=== PATIENT | male | born 1930 | race Caucasian/White ===

== ENCOUNTER 2017-02-11 12:28 | Inpatient (IN) | payer MEDICARE, BC ==
[~2017-02-11] VITALS: Ht 160 cm; Wt 83.0 kg
[~2017-02-11 12:28] MED LIST: ALEVE220 M1 PO; ASA CHILDREN'S81 MG PO; CALCIUM500 MG PO; DULCOLAX-DPS10 MG PR; LIPITOR DPS40 MG PO; MAALOX DPS30 ML PO; METAMUCIL660 GM PO; MILK OF MAGNESI10 ML PO; MOBIC DPS7.5 MG PO; NEURONTIN DPS100 MG PO; OMEGA-3 DPS1000 MG PO; PERCOCET 5 DPS1 TAB PO; PRILOSEC DPS20 MG PO; SENOKOT S1 TAB PO; SURFAK DPS240 MG PO; TENORMIN-DPS25 MG PO; TYLENOL DPS325 MG PO; VALIUM-DPS5 MG PO; ZYLOPRIM-DPS100 MG PO
--- NOTE | 2017-02-16 08:37 | OR ---
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 PROCEDURE: 1. Cervical 1 and cervical 2 laminectomies decompressing down to the cervical 2-3 level with wide decompression of the thecal sac. 2. Stereotactic placement of bilateral cervical 1 lateral mass screws. 3. Placement of stereotactic bilateral C2 pedicle screws. 4. Placement of bilateral lateral mass screws, cervical 4 and cervical 5. 5. [place] of autograft through same incision with morcellation and admixture with allograft with implantation into the posterolateral gutters for fusion substrate. 6. Posterior cervical instrumentation, cervical 1, 2, 4, and five, utilizing Cell[employer] instrumentation. 7. Intraoperative monitoring with no sign of change in the monitoring at the end of the case. DESCRIPTION OF PROCEDURE: After gaining informed consent, the patient was taken to operative theater, placed under general endotracheal anesthesia in a supine position and turned prone on a West table very cautiously after very cautious intubation. He was clamped to the bed and all pressure points were purposely padded prior to performing the procedure. There was no sign of change from his baseline. Once this was completed, attention was turned to the timeout and initial fluoroscopy. The incision was fashioned in the midline of the cervical spine from the bottom of the occiput down over top of cervical 5. This was then taken down in the midline avascular plane through the nuchal fascia to the spinous processes. The anatomy was severely deranged. Cervical 3 had barely any visible lateral mass and decision was made that I would be likely unable to place a cervical 3 lateral mass screw. Cervical 4 and 5 were severely arthritic and auto-fused. Cervical 2 was in a usual anatomical location. Cervical 1 was retrolisthetic in appearance and without much room between the occiput and C2 and severely overgrown with arthritic tissue. This case was significantly more difficult than usual secondary to the severely deranged anatomy, the significant scarring around the thecal sac at the occipital cervical junction as well as the arthritic changes making it very difficult to delineate anatomy at times. Initially, the decompression was performed first. Once C1 was widely subperiosteally dissected, I drilled this off very cautiously due to the severe compression without incurring any excursion into ADMIT: 02/11/2017 RM/LOC: W.01 [facility] MR#: [id number] [address] [place] [phone] TEENA MICHAEL [address] [place] [address] Operative/Delivery Room Report SEX: M AGE: 87 : 1930 the spinal canal. Once this was able to be loosened and nearly completely drilled off, the remaining pieces of scar tissue were removed. Bleeding was noted from the decompressed Deysi plexus, which was bipolar- electrocoagulated. Once this was completed, attention was turned to placing the screws. I was unable to fully delineate the lateral mass for cervical 3, and as such, cervical 3 screws were decided not to be placed. Utilizing standard landmarks and the severely arthritic cervical 4 and 5 lateral masses, the lateral masses were drilled 1 mm inferomedial to the geographic center, hand-drilled to 14 mm, then vancomycin powder coated screws were implanted bilaterally. At this point, the stereotactic reference frame was then screwed onto the spinous process of C2 and intraoperative CT scanning for stereotactic was obtained. Utilizing CT scanning and spot fluoroscopy as necessary, the lateral masses of C1 were delineated. This was then drilled down with a high-speed drill, and then the hand drill placing 22 mm vancomycin powder coated screws. Once this was done, alignment of the C2 pedicles was also delineated. These were partially drilled with a high speed drill and then hand-drilled the rest of the way placing 24 mm screws after vancomycin powder coating them. At this point, CT scan was obtained, resulting in suboptimal imaging but no apparent sign of complication as a result of screw placement, and attention was turned to laminectomy at cervical 2. Deysi plexus was severely compressed, and after utilizing the high speed drill and elevating the C2 lamina, significant bleeding was encountered. In the process of drilling this off, there was a scarred area of overfold on the dura that had incidental durotomy noted. This was covered. Bleeding was made hemostatic and subsequently a piece of paraspinous musculature was taken off and oversewn over top of the small dural rent. There was no further sign of CSF leak. At this point, attention was turned to finishing harvesting any further autograft that was left with some of the spinous processes and the rest of the bone was morcellated and admixed with allograft. The posterior instrumentation was brought into the field and appropriately sized and attention was then turned to placing the set screws caps and cross ADMIT: 02/11/2017 RM/LOC: W.01 [facility] MR#: [id number] [address] [place] [phone] TEENA MICHAEL [address] [place] [address] Operative/Delivery Room Report SEX: M AGE: 87 : 1930 connectors. Once this was completed, pristine hemostasis was obtained. DuraGen and DuraSeal were placed. There was no sign of any leakage, and bleeding was controlled. A ROGELIO drain was day-lighted out, and then the nuchal fascia was closed with running locking 0 Ethibond. Simple, inverted, and interrupted 2-0 Vicryl was used in the hypodermic tissue with terrence on the skin. ESTIMATED BLOOD LOSS: 500 mL. SPECIMEN: Posterior elements. DISPOSITION: Extubated and taken to postanesthesia care unit. Renato Stokes MD/ bo JOB #: [id number] CC: Renato Stokes, Attending Physician Other Physician, Family Physician
--- NOTE | 2017-02-18 08:17 | CO ---
ADMIT: 02/11/2017 RM/LOC: 524 [facility] MR#: [id number] 2620 [facility] [address] [place] [phone] TEENA MICHAEL [address] [place] [address] Consultation SEX: M AGE: 87 : 1930 DATE OF CONSULTATION: 02/17/2017 ATTENDING PHYSICIAN: Renato Stokes CONSULTING PHYSICIAN: Alvaro Butts MD HISTORY OF PRESENT ILLNESS: Mr. Michael is a pleasant, unfortunate, 87-year-old white male with history of hypertension, hypercholesterolemia, gastroesophageal reflux, and osteoarthritis. He was admitted to the hospital at [place] on 02/11/2017, with severe cervical spinal stenosis and myelopathy with severe cord compression. He underwent surgical procedure including C1-C2 laminectomy, stereotactic placement of bilateral cervical lateral mass screws, stereotactic C2 pedicle screws, C4-C5 bilateral mass screws, autograft with allograft implantation at the posterior gutters, and stabilization of the cervical spine. Initially, did well the first couple of days following surgery, but then started having more pain. He does have a [place] J collar in place, but this has been limiting his ability to take deep breaths and cough. Subsequently, started having fevers over the last couple of days, and chest x-rays revealing atelectasis and infiltrates. Because of persistent low-grade fevers and concern for possible pneumonia, he was seen in consultation. At the time he was seen, he was sitting up in a chair. He had his cervical collar in place, and was having some degree of pain. His son was present, and gave most of the information obtained. He has been able to cough a little bit over the last couple of days. Because he was having so much pain initially, he was on narcotic pain medications, and this caused some problems with mentation and he was "out of it." He has subsequently been started on DuoNebs and EzPAP with possibly some improvement. However, he continues to require low-flow supplemental oxygen, continues to have low-grade fevers. The son mentioned that the last couple of days, he has been able to cough up some purulent secretions. PAST MEDICAL HISTORY: As mentioned above. Additionally, he has had previous right shoulder replacement surgery. He has no history of underlying lung disease. ALLERGIES: HE IS ALLERGIC TO NIACIN, WHICH CAUSES SKIN RASH. MEDICATIONS: Listed home medications reviewed in electronic medical records, includes: 1. Atenolol 25 mg daily. 2. Allopurinol 300 mg daily. 3. Meloxicam 7.5 mg daily. 4. Aspirin 81 mg daily. 5. Atorvastatin 40 mg daily. ADMIT: 02/11/2017 RM/LOC: 524 [facility] MR#: [id number] [address] [phone] TEENA MICHAEL [address] [place] [address] Consultation SEX: M AGE: 87 : 1930 6. Omeprazole 20 mg daily. 7. He is also on fish oil 1 g daily. 8. Calcium carbonate p.r.n. FAMILY AND SOCIAL HISTORY: He is retired. He is a nonsmoker. He is a retired valle. He is . He had been living independently prior to hospitalization. REVIEW OF SYSTEMS: As above. A 12-point review of systems performed, significant positives and negatives discussed above. As noted, he has had some urinary retention, has a catheter in place. Prior to his entry into the hospital, he was having back pain, neck pain, both upper and lower extremity weakness and numbness. PHYSICAL EXAMINATION: VITAL SIGNS: He was currently running a low-grade fever of 100.9. T-max over the last 24 hours was 102 degrees Fahrenheit. Blood pressure 129/60. Pulse 70. Oxygen saturation was 97%, currently on 3 L of supplemental oxygen. GENERAL: This is a well-developed, well-nourished, elderly male, currently in no acute respiratory distress. He does awaken when stimulated, and is otherwise appropriate. When not engaged, at times he drifts off to sleep. He is complaining of significant neck pain. HEENT: Shows head to be normocephalic, atraumatic. Pupils are equal and reactive. Nares patent. Posterior hypopharynx is clear. Oral dentition is marginal with number of decaying teeth. NECK: Has a [place] J collar in place. CHEST: Revealed decreased diaphragm excursion because of obesity. Breath sounds were diminished in the lung bases. He does have some central rhonchi, which are more prominent on the right than on the left. HEART: Regular, no murmur. ABDOMEN: Obese, soft, nondistended, nontender. He has hypoactive but positive bowel sounds. No guarding or rigidity is noted. EXTREMITIES: Showed no clubbing, cyanosis, or edema. Several areas of his lower extremities show some bruises and lacerations where he had been falling prior to entry into the hospital. He does have some weakness, but no acute focal neurologic deficits noted. ASSESSMENT AND PLAN: He was admitted with significant severe compression of ADMIT: 02/11/2017 RM/LOC: 524 [facility] MR#: [id number] [address] [place] [phone] TEENA MICHAEL [address] [place], [place] [id number] Consultation SEX: M AGE: 87 : 1930 the spinal cord, C1-C2, has undergone extensive surgery as mentioned above. He has significant postop hypoxemia, which is secondary to combination of probable pneumonia and atelectasis. I am going to increase the frequency of the nebulizer treatments to every 4 hours. We will continue with the EzPAP for lung expansion. Additionally, I am going to add Acapella/flutter valve to help loosen and liberate secretions. Obviously pain control is needed, but ambulation if possible would certainly be beneficial as well to help expand the lungs. I am going to add Zosyn for increased coverage, we will start that intravenously. We will continue to follow here in the hospital with you and further recommendations to follow the assessment of his response to treatments and therapies. Alvaro Butts MD/ bo JOB #: [id number] CC: Renato Stokes, Attending Physician Other Physician, Family Physician
[2017-02-22] MEDS ORDERED: LOVENOX DP40 MG/0.4 SQ (09:55)
[2017-02-22] MEDS ORDERED: OCEAN NASAL MIS45 ML NS (09:56)
[2017-02-22] MEDS ORDERED: ULTRAM DPS50 MG PO (09:56)
[2017-02-22] MEDS ORDERED: TEARS NATURAL D15 ML OU (09:56)
[2017-02-22] MEDS ORDERED: OMEGA-3 DPS1000 MG PO (09:57)
[2017-02-22] MEDS ORDERED: ZYLOPRIM-DPS300 MG PO (09:57)
[2017-02-22] MEDS ORDERED: PROTONIX40 MG PO (09:57)
[2017-02-22] MEDS ORDERED: ASA CHILDREN'S81 MG PO (09:57)
[2017-02-22] MEDS ORDERED: LIPITOR40 MG PO (09:57)
[2017-02-22] MEDS ORDERED: TENORMIN-DPS25 MG PO (09:57)
[2017-02-22] MEDS ORDERED: OYSTER SHELL C500 MG PO (09:58)
[2017-02-22] MEDS ORDERED: DUONEB DPS3 ML IH (09:59)
[2017-02-22] MEDS ORDERED: AUGMENTIN 250250 MG PO (09:59)
[2017-03-25] MEDS ORDERED: ZYLOPRIM-DPS300 MG PO (13:55)
[2017-03-25] MEDS ORDERED: ASPIRIN EC81 MG PO (13:55)
[2017-03-25] MEDS ORDERED: VITAMIN D1000 UNI1 PO (14:00)
[2017-03-25] MEDS ORDERED: NEURONTIN DPS300 MG PO (14:01)
[2017-03-25] MEDS ORDERED: FEOSOL-DPS325 MG PO (14:01)
[2017-03-25] MEDS ORDERED: ULTRAM DPS50 MG PO (14:01)
[2017-03-25] MEDS ORDERED: ASCORBIC ACID500 MG PO (14:02)
--- NOTE | 2017-03-30 12:05 | DS ---
ADMIT: 02/11/2017 RM/LOC: 524 [facility] MR#: [id number] ACC#: [id number] 2620 [facility] [address] [place], [place] [address] TEENA MICHAEL [address] [place] [address] Discharge Summary SEX: M AGE: 87 : 1930 ADMISSION DATE: 02/11/2017 DISCHARGE DATE: 02/20/2017 SERVICE: Neurosurgery. REASON FOR ADMISSION: 1. Cervical stenosis. 2. Upper extremity weakness. PROCEDURE: Cervical 1-5 laminectomy and fusion. CONSULTATION: Alvaro Butts MD, with Pulmonology. HOSPITAL COURSE: Mr. Michael tolerated his procedure well. Postoperatively, he was taken to the Med/Surg floor for monitoring and care. Postop day #1, he was awake and alert. He was afebrile, and his vital signs were stable. He was moving all extremities x4. He was complaining of quite a bit of posterior neck pain. His incision and dressing had old drainage on it. It was serosanguineous in nature. His ROGELIO drain was patent with serosanguineous drainage. He did work with Physical Therapy and Occupational Therapy and tolerated this well. He was having some urinary retention. Postop day #2, he was awake and alert. He was afebrile, his vital signs were stable. He was moving all extremities x4 with 5/5 strength. He was complaining of bilateral arm weakness. He was complaining of being dizzy, which his son did report he had prior to surgery. He was reporting his ears were feeling a little full. His incision was clean, dry, and intact. His ROGELIO drain continued to be patent with serosanguineous drainage. He was started on some cetirizine for his dizziness. He continued to work with Physical Therapy and Occupational Therapy and tolerated this well. Postop day #3, he was awake and alert. He was a little more sleepy today. He was afebrile, his vital signs were stable. He was moving all extremities x4. He was complaining of bilateral hand weakness. His incision was clean, dry, and intact. His ROGELIO drain was patent with serosanguineous drainage that had decreased; therefore, it was discontinued without difficulty. He did continue to work with therapies. On postop day #4, he would awaken but was drowsy. He was febrile. His vital signs were stable. He was moving all extremities x4 with 5/5 strength. His incision was clean, dry, and intact. His posterior neck pain was improved with the FITNESS CLUB MANAGER. His pain medications were changed. He worked with Physical Therapy and Occupational Therapy and was having quite a bit of pain. That afternoon, his fever spiked again. Blood cultures were obtained. Urine was obtained. He was started on some DuoNebs with the EZ Pap. He was encouraged to cough and deep breathe. Postop day #5, he would awaken, he was drowsy. He was febrile, his vital signs were stable. He was moving all extremities x4. His incision was clean, dry, and intact. His chest x-ray revealed atelectasis versus consolidation. He was started on some Levaquin. His UA revealed some trace leukocyte esterase. He was having difficulty with the way his cervical collar was fitting, and Computer Lab Assistant was consulted. He continued to work with Physical Therapy and Occupational Therapy. He continued with urinary retention, and a Nieves catheter was placed per dependent drainage. He had an ADMIT: 02/11/2017 RM/LOC: 524 [facility] MR#: [id number] [address] [place] [address] TEENA MICHAEL [address] [place], [place] [id number] Discharge Summary SEX: M AGE: 87 : 1930 increased need in his oxygen. Postop day #6, his chest x-ray revealed bilateral lung base opacities. He was awake, he was lethargic on the medications. He was moving all extremities x4. His incision was clean, dry, and intact. He had some abdominal distention. He was complaining of being constipated. He was given some medications for his constipation. His pain medication was changed from Percocet down to tramadol. He was started on some prophylactic DVT Lovenox. Pulmonology was consulted for his pneumonia. He continued to work with Physical Therapy and Occupational Therapy as tolerated. He was started on some Zosyn. Family was requesting a fleets enema and he was given one. Postop day #7, his vital signs were stable. He was pretty sedated. He was moving all extremities x4. His wound was clean, dry, and intact. His Valium, fentanyl, and morphine were discontinued. Postop day #8, his vital signs were stable. He was awake. He was alert. He was moving all extremities x4. He had global weakness but was at baseline. Social Work was working with the family for post discharge placement. He continued to work with Physical Therapy and Occupational Therapy. Postop day #9, he was awake and alert. He was moving all extremities x4 but was globally weak. He was at his baseline. His incision was clean, dry, and intact, and no hematoma or cerebrospinal fluid accumulation was noted. His Zosyn was discontinued, and he was started on Augmentin. He was evaluated by the [facility] and determined to be an appropriate candidate for their swing bed rehabilitation program. On the day of discharge, he was deemed medically fit for transfer. DISCHARGE CONDITION: Good. DISCHARGE MEDICATIONS: 1. Lovenox 40 mg subcu daily. 2. Ultram 50 mg 1-2 tablets p.o. q.4 hours p.r.n. 3. [place] nasal spray 2 sprays in each naris q.2 hours p.r.n. 4. Natural Tears 1 drop to each eye q.4 hours p.r.n. 5. Atenolol 25 mg p.o. daily. 6. Allopurinol 300 mg daily. 7. Aspirin 81 mg daily. 8. Atorvastatin 40 mg q. p.m. 9. Omeprazole 20 mg daily. 10.Fish oil 1000 mg 2 capsules daily. 11.Calcium 500 mg 2 tablets daily. 12.Augmentin 500 mg p.o. b.i.d. x5 days. 13.DuoNebs q.i.d. DISCHARGE INSTRUCTIONS: (Per Dr. Stokes): ADMIT: 02/11/2017 RM/LOC: 524 [facility] MR#: [id number] [address] [address] TEENA MICHAEL [address] [place] [address] Discharge Summary SEX: M AGE: 87 : 1930 He may shower, he should not take any tub baths, he should pat his incision dry. He should not lift anything greater than 15 pounds. He can have a regular diet. He should continue with Physical Therapy and Occupational Therapy. He will call with any questions or concerns including neurological worsening, signs or symptoms of infection, or any other issues. FOLLOWUP: He will follow up in the [facility] with Dr. Stokes. DISPOSITION: He was discharged to the [facility] Bed. Total [id number] time for the discharge planning and care coordination was 30 minutes. Vicenta Washington APRN / Renato Stokes MD / lori JOB #: [id number] CC: Renato Stokes MD, Attending Physician Other Physician, Family Physician
== END 2017-02-20 13:50 | DRG 471 ==
LOC: 5MS 14:46 → WOR 14:46 → 5MS 02-12 00:33
PROVIDERS: ADMIT Neurological Surgery
PROC: 0RG1071 Fusion of Cervical Vertebral Joint with Autologous Tissue Substitute, Posterior Approach, Posterior Column, Open Approach (ICD-10-PCS; principal; 2017-02-11)
DX: M43.12 Spondylolisthesis, cervical region (principal); J18.9 Pneumonia, unspecified organism; G92 Toxic encephalopathy; A41.9 Sepsis, unspecified organism; N39.0 Urinary tract infection, site not specified; G95.20 Unspecified cord compression; M48.02 Spinal stenosis, cervical region; I10 Essential (primary) hypertension; E78.00 Pure hypercholesterolemia, unspecified; K21.9 Gastro-esophageal reflux disease without esophagitis; M19.90 Unspecified osteoarthritis, unspecified site; K59.00 Constipation, unspecified; R33.9 Retention of urine, unspecified; R09.02 Hypoxemia; T50.905A Adverse effect of unspecified drugs, medicaments and biological substances, initial encounter; Z96.611 Presence of right artificial shoulder joint; Z95.5 Presence of coronary angioplasty implant and graft; I25.2 Old myocardial infarction

== ENCOUNTER 2017-02-23 12:30 | Inpatient (IN) | payer MEDICARE, BC ==
[~2017-02-23] VITALS: Ht 160 cm; Wt 73.8 kg
--- NOTE | ~2017-02-23 | DS ---
ADMIT: 02/23/2017 RM/LOC: 506 [facility] MR#: [id number] [facility]#: [id number] [address] [place], [place] [phone] TEENA MICHAEL [address] [place] [address] General Discharge Summary SEX: M AGE: 87 : 1930 ADMISSION DATE: 02/23/2017 DISCHARGE DATE: 03/03/2017 SERVICE: Neurosurgery. REASON FOR ADMISSION: CSF leak, status post posterior cervical fusion. CONSULTS: Dr. Hernandez with [facility]. PROCEDURES: Lumbar drain placement. HOSPITAL COURSE: Mr. Michael is a very pleasant gentleman who underwent a C1 through 5 posterior cervical fusion on 02/11/2017. He had a prolonged hospital course due to pneumonia from hypopnea on his pain medications. He did have a small durotomy intraoperatively but had no drainage for the week he was in the hospital. He was transferred to the free soil swing bed and was doing well up until yesterday when he started having some clear drainage from his incision. This was tested and was positive for CSF. He was transferred back to [facility] for further care under Dr. Stokes. He was admitted to the Med/Surg floor for monitoring and care. Dr. Hernandez was consulted for assistance with his hypertension and pneumonia. His Lovenox was held. His cervical collar was continued at all times. Hospital day #2, his lumbar drain was placed at bedside without difficulty by Dr. Stokes. He was awake and alert, his vital signs were stable. He was moving all extremities x4 with global weakness. His drain was set at 10-15 mL/h. He was having some urinary retention and was started on Flomax. He was also having some difficulty with constipation as well. He was seen by PT, OT, and ST. Hospital day #3, he was awake and alert. His vital signs were stable. He was complaining of a headache. He had no drainage from his incision. His lumbar drain was intact. He was started on heparin subcutaneous for DVT prophylaxis. He was having some knee pain and a CT scan revealed chronic changes of osteoarthritis but no fracture. He continued with urinary retention and a Nieves catheter was placed. Hospital day #4, he was awake and alert. He was afebrile, and his vital signs were stable, he was moving all extremities x4. His lumbar drain was patent with clear cerebrospinal fluid drainage noted. He had no complaints. He had an MRI of his lumbar spine to his urinary retention. 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 A bone scan was ordered. Hospital day #5, he was awake and alert. He was afebrile, and his vital signs were stable, he was moving all extremities x4. His incision was oversewn with 2-0 nylon. His lumbar drain was patent with clear CSF. He denied headache. He continued to work with the therapies. Hospital day #6, he was awake and alert. His vital signs were stable. He was moving all extremities x4. His wound was clean, dry, and intact. His lumbar drain was intact. He continued with physical therapy, occupational therapy, and speech therapy and was tolerating this well. Hospital day #7, he was awake and alert. His vital signs were stable, he was complaining of a headache. He was moving all extremities x4 with 5/5 strength. His lumbar drain was clamped. Hospital day #8, he was awake and alert. He was afebrile, his vital signs were stable. He was moving all extremities x4. He was complaining of a mild ADMIT: 02/23/2017 RM/LOC: 506 [facility] MR#: [id number] [address] [address] TEENA MICHAEL [address] [place] [id number] General Discharge Summary SEX: M AGE: 87 : 1930 headache. His lumbar drain was clamped. Nursing reported drainage around the lumbar drain site but no drainage from his cervical incision. His lumbar drain was hooked to pressure reading with the reading from +2 to -5 with no CSF drainage noted. His lumbar drain was discontinued without difficulty. He tolerated the procedure well. He continued to work with the therapies. Hospital day #9, he was awake and alert. His vital signs were stable, he was moving all extremities x4. His incision to his neck and lumbar drain site were clean, dry, and intact. He was evaluated by the inpatient rehabilitation unit and deemed to be a good candidate for their inpatient rehabilitation unit with plans to return to his prior function of living status. On the day of discharge, he was deemed medically fit for transfer to the inpatient rehabilitation unit. DISCHARGE CONDITION: Good. MEDICATIONS: 1. Compazine 10 mg p.o. q.8 hours. 2. Flomax 0.4 mg p.o. at bedtime. 3. Lipitor 40 mg p.o. at bedtime. 4. MiraLax 17 g p.o. b.i.d. 5. Mylicon tablets 80 mg p.o. q.i.d. 6. Protonix 40 mg daily. 7. Tenormin 12.5 mg b.i.d. 8. Bacitracin to incision q.p.m. 9. Maalox 30 mL p.o. q.6 hours p.r.n. 10.OxyIR 2.5 mg p.o. q.4 hours p.r.n. 11.Tylenol 650 mg p.o. q.4 hours p.r.n. 12.Zofran 4 mg p.o. q.4 hours p.r.n. 13.DuoNeb 3 mL q.6 hours p.r.n. 14.Atorvastatin 40 mg at bedtime. 15.Calcium 1000 mg daily. 16.Carboxymethylcellulose 0.5% q.4 hours p.r.n. to both eyes. 17.Sodium chloride two sprays each nostril q.2 hours p.r.n. 18.Tramadol 50 mg one to two tabs p.o. q.4 hours p.r.n. 19.Enoxaparin 40 mg subcutaneous daily. 20.Albuterol 2.5 mg q.i.d. 21.PreserVision eyedrops daily. 22.Acetaminophen 650 mg q.6 hours p.r.n. 23.Docusate senna 50-8.6 b.i.d. 24.Acetaminophen 1000 mg q.6 hours p.r.n. 25.Milk of magnesia 15 mL daily p.r.n. DISCHARGE INSTRUCTIONS: Per Dr. Stokes: He may shower, he should not take any tub baths, he should pat his incision dry. He should wear a [place] collar for a shower. He is to wear the readfy Collar at all times. He should ADMIT: 02/23/2017 RM/LOC: 506 [facility] MR#: [id number] [address] [place] [phone] TEENA MICHAEL [address] [place] [address] General Discharge Summary SEX: M AGE: 87 : 1930 not lift anything greater than 15 pounds. He should not take any NSAIDs. He should have an MRI of his lumbar spine and pelvis on March 13. He should continue with physical therapy and occupational therapy. He can have a regular diet. He will call with any questions or concerns including neurological worsening, signs or symptoms of infection, or any other issues. FOLLOWUP: He will follow up with Vicenta in clinic in 2 weeks. DISPOSITION: He was discharged to the inpatient rehabilitation unit. Total [id number] time for the discharge planning, care coordination was 30 minutes. Vicenta Washington APRN / Renato Stokes MD / bo JOB #: [id number] CC: Renato Stokes MD, Attending Physician UNKNOWN, Family Physician
--- NOTE | ~2017-02-23 | HP ---
ADMIT: 02/23/2017 RM/LOC: 310 [facility] MR#: [id number] [facility]#: [id number] 2620 [facility] [address] [place] [phone] TEENA MICHAEL [address] [place] [address] History and Physical SEX: M AGE: 87 : 1930 DATE OF SERVICE: REASON FOR ADMIT: CSF leak. HISTORY OF PRESENT ILLNESS: Mr. Michael is a very pleasant gentleman, who had a small durotomy intraoperatively. He was in the hospital for almost a week and during that time, really did not have any sign of CSF leakage. He was transferred down at the end of last week to [place] and then on Thursday unfortunately began having some clear drainage from the wound. He had been on antibiotics because of pneumonia from his hypopnea on his pain medications previously. He has been on antibiotics. This tested positive for CSF. Dr. Briscoe called me this morning and I accepted him back in transfer. PAST MEDICAL HISTORY: Posterior cervical laminectomy and fusion from severe cervical myelomalacia last week, right shoulder replacement, coronary artery disease, hypertension, gout. MEDICATIONS: Medication reconciliation form with allergies was reconciled at the time of seeing him in room 310. SOCIAL HISTORY: He is a nonsmoker. 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 SOCIAL HISTORY: He is nonsmoker and nondrinker. REVIEW OF SYSTEMS: Complete review of systems was annotated with pertinent positives annotated in the history of present illness. PHYSICAL EXAMINATION: VITAL SIGNS: 97.4, 70 beats, 16 respirations, 170/65, 97% on room air. GENERAL: He is an otherwise at his usual stage of health 87-year-old gentleman, who is in his collar. On examination of the wound, there are couple drops of clear fluid. He complains of headache when he is up and elevated. He has severely deconditioned strength, but he is otherwise unchanged from a neurological standpoint with the exception of improved cognitive function. He does have full motor activation but deconditional weakness. ABDOMEN: He has an obese abdomen. LUNGS: Normal respiratory excursions. HEENT: Atraumatic head, no scleral icterus. Clear oropharynx. ASSESSMENT AND PLAN: Mr. Michael is a very pleasant gentleman, who had a durotomy during surgery. It looked like he was healing up very well until a ADMIT: 02/23/2017 RM/LOC: 310 [facility] MR#: [id number] [address] [phone] TEENA MICHAEL O [address] [place] [address] History and Physical SEX: M AGE: 87 : 1930 day ago when he started having some drainage. I spoke with Dr. Hernandez about helping out with the pulmonological and hypertensive issues for this gentleman. We will plan for lumbar drain placement tomorrow as he had a dose of Lovenox about 7 hours ago. We discussed risks, benefits, and alternatives of lumbar drain placement with risks including but not limited to, NV, DVT, PE, , pneumonia, loss of function of the lower extremities, CSF leak, failure to alleviate leak with need for further surgery despite the fact that it appeared to have a watertight closure at the time of prior surgery, bleeding, infection as well as others. I believe they understand the risks, benefits, alternatives and wished to proceed ahead with lumbar drain placement in the morning once he has been off the Lovenox for about 24 hours. I will plan to perform that tomorrow morning. Renato Stokes MD/ bo JOB #: [id number] CC: Renato Stokes, Attending Physician UNKNOWN, Family Physician
[~2017-02-23 12:30] MED LIST changes: +AUGMENTIN 250250 MG PO; +DUONEB DPS3 ML IH; +LIPITOR40 MG PO; +LOVENOX DP40 MG/0.4 SQ; +OCEAN NASAL MIS45 ML NS; +OYSTER SHELL C500 MG PO; +PROTONIX40 MG PO; +TEARS NATURAL D15 ML OU; +ULTRAM DPS50 MG PO; +ZYLOPRIM-DPS300 MG PO
--- NOTE | 2017-02-24 10:01 | CO ---
ADMIT: 02/23/2017 RM/LOC: 310 [facility] MR#: [id number] [address] [address] TEENA GRADY [address] [place] [address] Consultation SEX: M AGE: 87 : 1930 DATE OF CONSULTATION: 02/23/2017 ATTENDING PHYSICIAN: Renato Stokes CONSULTING PHYSICIAN: Mundo Hernandez MD REASON FOR CONSULTATION: History of healthcare-associated pneumonia as well as recommendations for medical management. HISTORY OF PRESENT ILLNESS: Teena Grady is a very nice 87-year-old, who had a cervical laminectomy. He was discharged on February 20 to [facility]. He is doing well in [facility] [place], however, did develop a CSF leak. He is transferred back to the [facility] to Dr. Stokes, who plans to place a lumbar drain. He is day #9 of antibiotics for Augmentin for a healthcare- associated pneumonia. He has no chest pain, shortness of breath. No nausea. No vomiting. He does have some constipation as well as some headaches and repair with CSF leak. He is otherwise feeling quite well. He has a history of coronary artery disease with stents x3, hypertension, hyperlipidemia as well as GERD, and dry eyes. Also, he does have some osteoarthritis of the knees and hips. He is resting well on room air in his room, he was evaluated at his bedside. He just would like to have resolution of his headache. PAST MEDICAL HISTORY: 1. Hypertension. 2. Hyperlipidemia. 3. Coronary artery disease. 4. PCI x3 with 3 stents. 5. GERD. 6. Osteoarthritis. 7. Spinal stenosis status post cervical laminectomy. CURRENT MEDICATIONS: 1. Atenolol. 2. Lipitor. 3. Omeprazole. 4. Augmentin. 5. Carboxymethylcellulose eye drops. 6. Sodium chloride eye drops. 7. Tramadol. 8. Lovenox. 9. Albuterol. 10.PreserVision. 11.Acetaminophen. 12.Docusate. 13.Milk of magnesia. ALLERGIES: NIACIN WELL CELEBREX. ADMIT: 02/23/2017 RM/LOC: 310 [facility] MR#: [id number] [address] [address] TEENA GRADY [address] [place] [address] Consultation SEX: M AGE: 87 : 1930 FAMILY HISTORY: Mother is . She had glaucoma. Father is . He had coronary artery disease. Multiple brothers with coronary artery disease. Two brothers with alcoholism. One sister who is healthy. He has 2 sons and 1 daughter. Daughter and elder son are healthy. The younger son has coronary artery disease. SOCIAL HISTORY: He does not drink, smoke, or do drugs. He lives with his [place] farm. His has dementia and is currently being cared for by his elder son's . REVIEW OF SYSTEMS: A complete review of systems is reviewed per HPI. PHYSICAL EXAMINATION: VITAL SIGNS: Blood pressure 136/56, pulse 81, respiratory rate 16, temperature is 97.4, and he is 97% on room air. GENERAL: Alert and oriented x3, in no acute distress. HEENT: Normocephalic, atraumatic. Eye exam, no nasal discharge. NECK: C-spine and C collar. HEART: Regular rhythm and rate. LUNGS: Clear to auscultation with some mild coarseness at his bases, left greater than right. ABDOMEN: Soft, nontender, and nondistended. He has decreased bowel sounds. EXTREMITIES: No clubbing, cyanosis, or edema. He has pain in his knees and his hips. LABORATORY DATA: White blood cells are 11.8, hemoglobin is 9.8, platelets are 339. Sodium is 140, potassium 4.2, chloride is 106, bicarb is 26, BUN 16, glucose 102, creatinine 0.7, calcium 7.7, bilirubin 0.8, total protein 6.1, albumin is 2.2, alkaline phosphatase 63, AST is 25, ALT is 39. INR is 1.11. ASSESSMENT AND PLAN: 1. Healthcare-associated pneumonia, day #9 of 14. Plan for antibiotics day #11 of 14. He is on room air. We will continue pulmonary toilet. We will go ahead and repeat a chest x-ray, and check some infectious and inflammatory markers as well. 2. Constipation. We will go and check an abdominal x-ray, and give him an ADMIT: 02/23/2017 RM/LOC: 310 [facility] MR#: [id number] [address] [address] TEENA GRADY [address] [place] [address] Consultation SEX: M AGE: 87 : 1930 enema. 3. Hypertension. Continue his antihypertensive. 4. Gastroesophageal reflux disease. Continue his antacid. 5. Anemia. We will go ahead and get some markers in the morning assuming care for anemia. He is on SCDs and FRANCIA, so he cannot have pharmacologic prophylaxis at this point because he is going to have a lumbar drain. I discussed the plan with the patient. The patient's family expressed understanding in agreement and had no further questions. I will continue to follow this patient and make recommendations based on his clinical progress. Mundo Hernandez MD/ bo JOB #: [id number] CC: Renato Stokes, Attending Physician UNKNOWN, Family Physician Renato Stokes MD
--- NOTE | 2017-03-02 11:58 | OR ---
ADMIT: 02/23/2017 RM/LOC: 310 [facility] MR#: [id number] [address] [address] FERNANDA TEENA Baugh [address] [place] [address] Operative/Delivery Room Report SEX: M AGE: 87 : 1930 SURGERY DATE: 02/24/2017 SURGEON: Renato Stokes MD PREPROCEDURE DIAGNOSIS: Cerebrospinal fluid leak. POSTPROCEDURE DIAGNOSIS: Cerebrospinal fluid leak. PROCEDURE: Placement of lumbar drain. INDICATION: Please see the chart. We discussed risks, benefits, and alternatives of the procedure as I stated in my admit yesterday. He has CSF leak at the site of his posterior cervical fusion. DESCRIPTION OF PROCEDURE: After gaining informed consent and performing a time-out, the patient was prepped and draped in usual sterile fashion in a right lateral decubitus position at approximately L4-5 level through his laminectomy incision, this was anesthetized and then Tuohy needle was passed in. This had to be withdrawn the first time because he had some pain down the left leg and into the thigh and then after replacement of the needle, it was more tolerable for him. The lumbar drain was then placed into the thecal sac and advanced in. The Tuohy needle was removed and Seldinger wire was removed. CSF was obtained. The drain was capped and sewn in place. The patient had been given Ancef prior to performing the procedure. He tolerated it well and had a draining working lumbar drain post procedurally. This was done at bedside in the ICU. Renato Stokes MD/ bo JOB #: [id number] CC: Renato Stokes, Attending Physician UNKNOWN, Family Physician
[2017-03-04] MEDS ORDERED: COMPAZINE10 MG PO (13:20)
[2017-03-04] MEDS ORDERED: FLOMAX DPS0.4 MG PO (13:20)
[2017-03-04] MEDS ORDERED: MIRALAX PACKET17 GM PO (13:20)
[2017-03-04] MEDS ORDERED: MYLICON DPS80 MG PO (13:21)
[2017-03-04] MEDS ORDERED: MAALOX DPS30 ML PO (13:22)
[2017-03-04] MEDS ORDERED: BACITRACIN--O.0.9 GM TP (13:22)
[2017-03-04] MEDS ORDERED: TYLENOL DPS325 MG PO (13:23)
[2017-03-04] MEDS ORDERED: OXY IR DPS5 MG PO (13:23)
[2017-03-04] MEDS ORDERED: ZOFRAN ODT4 MG PO (13:24)
[2017-03-04] MEDS ORDERED: PRESERVISION A1 EAC1 PO (13:31)
[2017-03-04] MEDS ORDERED: PROVENTIL2.5 MG/3 M IH (13:32)
[2017-03-04] MEDS ORDERED: SENNA S TABLET1 EACH PO (13:32)
[2017-03-04] MEDS ORDERED: LUBRICANT EYE15 M1 OU (13:33)
[2017-03-25] MEDS ORDERED: ASPIRIN EC81 MG PO (13:55)
[2017-03-25] MEDS ORDERED: ZYLOPRIM-DPS300 MG PO (13:55)
[2017-03-25] MEDS ORDERED: VITAMIN D1000 UNI1 PO (14:00)
[2017-03-25] MEDS ORDERED: FEOSOL-DPS325 MG PO (14:01)
[2017-03-25] MEDS ORDERED: NEURONTIN DPS300 MG PO (14:01)
[2017-03-25] MEDS ORDERED: ULTRAM DPS50 MG PO (14:01)
[2017-03-25] MEDS ORDERED: ASCORBIC ACID500 MG PO (14:02)
== END 2017-03-03 14:05 | disposition short-term general hospital (02) | DRG 91 ==
LOC: 3ICU 12:30 → 5MS 03-02 13:46
PROVIDERS: ADMIT Neurological Surgery
PROC: 009U30Z Drainage of Spinal Canal with Drainage Device, Percutaneous Approach (ICD-10-PCS; principal; 2017-02-24)
DX: G97.82 Other postprocedural complications and disorders of nervous system (principal); J18.9 Pneumonia, unspecified organism; G95.89 Other specified diseases of spinal cord; D64.9 Anemia, unspecified; E46 Unspecified protein-calorie malnutrition; G96.0 Cerebrospinal fluid leak; R33.8 Other retention of urine; N40.1 Benign prostatic hyperplasia with lower urinary tract symptoms; I25.10 Atherosclerotic heart disease of native coronary artery without angina pectoris; I10 Essential (primary) hypertension; R94.8 Abnormal results of function studies of other organs and systems; K59.00 Constipation, unspecified; R51 Headache; E78.5 Hyperlipidemia, unspecified; K21.9 Gastro-esophageal reflux disease without esophagitis; H04.129 Dry eye syndrome of unspecified lacrimal gland; M17.0 Bilateral primary osteoarthritis of knee; M16.0 Bilateral primary osteoarthritis of hip; M48.00 Spinal stenosis, site unspecified; Z82.49 Family history of ischemic heart disease and other diseases of the circulatory system; Z96.611 Presence of right artificial shoulder joint; Z98.1 Arthrodesis status; Z95.5 Presence of coronary angioplasty implant and graft

== ENCOUNTER 2017-03-03 11:10 | Inpatient (IN) | payer MEDICARE, BC ==
[~2017-03-03] VITALS: Ht 160 cm; Wt 76.0 kg
[2017-03-04] MEDS ORDERED: FLOMAX DPS0.4 MG PO (13:20)
[2017-03-04] MEDS ORDERED: MIRALAX PACKET17 GM PO (13:20)
[2017-03-04] MEDS ORDERED: COMPAZINE10 MG PO (13:20)
[2017-03-04] MEDS ORDERED: MYLICON DPS80 MG PO (13:21)
[2017-03-04] MEDS ORDERED: BACITRACIN--O.0.9 GM TP (13:22)
[2017-03-04] MEDS ORDERED: MAALOX DPS30 ML PO (13:22)
[2017-03-04] MEDS ORDERED: OXY IR DPS5 MG PO (13:23)
[2017-03-04] MEDS ORDERED: TYLENOL DPS325 MG PO (13:23)
[2017-03-04] MEDS ORDERED: ZOFRAN ODT4 MG PO (13:24)
[2017-03-04] MEDS ORDERED: PRESERVISION A1 EAC1 PO (13:31)
[2017-03-04] MEDS ORDERED: SENNA S TABLET1 EACH PO (13:32)
[2017-03-04] MEDS ORDERED: PROVENTIL2.5 MG/3 M IH (13:32)
[2017-03-04] MEDS ORDERED: LUBRICANT EYE15 M1 OU (13:33)
--- NOTE | 2017-03-07 19:25 | NUR ---
DAY SHIFT SUMMARY: SEE OT FIM/NOTE FOR GROOMING, SHOWERING, DRESSING AND SHOWER TRANSFER. MOD ASSIST OF 1 FOR TOILETING AND BED/W/C,TOILET TRANSFERS; MAX ASSIST TO AMBULATE W/ GB AND WALKER; MIN ASSIST FOR W/C PROPULSION
--- NOTE | 2017-03-20 20:51 | NUR ---
DAY SHIFT SUMMARY: IMPROVING. MIN ASSIST OF 1 FOR DRESSING, TOILETING, TRANSFERS W/ WALKER; MAX ASSIST FOR W/C PROPULSION-STILL NOT 50FT
[2017-03-25] MEDS ORDERED: ZYLOPRIM-DPS300 MG PO (13:55)
[2017-03-25] MEDS ORDERED: ASPIRIN EC81 MG PO (13:55)
[2017-03-25] MEDS ORDERED: VITAMIN D1000 UNI1 PO (14:00)
[2017-03-25] MEDS ORDERED: FEOSOL-DPS325 MG PO (14:01)
[2017-03-25] MEDS ORDERED: NEURONTIN DPS300 MG PO (14:01)
[2017-03-25] MEDS ORDERED: ULTRAM DPS50 MG PO (14:01)
[2017-03-25] MEDS ORDERED: ASCORBIC ACID500 MG PO (14:02)
--- NOTE | 2017-04-24 08:16 | DS ---
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 HOSPITAL COURSE: Please see my initial H and P for details prior to transfer to the IRU. Pain and bowel regimen adjusted. Gabapentin was started at night to help with pain and insomnia. Lovenox continued for DVT prophylaxis. Mylicon p.r.n. gas bloating, Protonix switched to Pepcid to decrease risk of C. diff. Bowel regimen changed to Senokot-S. Labs monitored regularly. Iron deficiency treated with Feosol and vitamin C. Tenormin discontinued. Lipitor adjusted. Pepcid adjusted. Speech Therapy consulted for cognitive disorder. Vitamin D deficiency replaced. Pepcid discontinued. Polypharmacy addressed by discontinuing milk of magnesia, Mylicon, Tylenol, Zofran, DuoNebs, [place]wood Nasal Mist, Celluvisc. Fioricet started for headache. Pepcid restarted for GERD. Lab monitored regularly. Pepcid adjusted to b.i.d. for GERD. Dietitian followed to optimize nutrition. Pharmacy followed to optimize medication management. Gabapentin given during the daytime for pain. Watch for side effects of somnolence and confusion. Started him on Neurontin 100 mg q.7 hour, noon 1700, and then 300 mg at 2200. Flomax discontinued. Voltaren gel used to left wrist for acute gouty arthritis suspected. Proventil adjusted b.i.d. and b.i.d. p.r.n. PVR checked for urinary retention. PVR came back high at 328 mL. Gabapentin adjusted to 100 mg and 300 mg total t.i.d., 100, 300, and 300. Voltaren changed to p.r.n. Restarted Flomax 0.4 mg. PVRs came down with restarting Flomax. Lab monitored regularly. Feosol and vitamin C discontinued. Voltaren discontinued. Gabapentin changed to at bedtime only. His pain was well controlled. EdemaWear used for peripheral edema. PediPulse was also used for feet in bed. We encouraged the bilateral lower extremity isometrics and ankle pumps to help with the peripheral edema. Iron came back 11% with a hemoglobin 8.8, so iron deficiency with acute blood loss anemia, so was given Feraheme 510 mg IV and oral replacement restarted. Flomax again discontinued due to nonspecific low blood pressure readings. PVRs were checked while off Flomax, but again had urinary retention off Flomax, so was restarted with 0.4 mg with supper. Did PVRs once per day. PVRs within normal limits. Ultram adjusted for scheduled doses for therapy purposes as well as needed. Hemoglobin, transferrin saturation repeated. PVR is normal. Iron came up to 19%, hemoglobin up to 9.7. The patient is medically stable at the time of discharge. Please see IRU interdisciplinary discharge summary for details regarding ADMIT: 03/03/2017 RM/LOC: 614 [facility] MR#: [id number] [address] [place] [address] TEENA MICHAEL [address] [place], [place] [id number] General Discharge Summary SEX: M AGE: 87 : 1930 progress in therapy. DISCHARGE DISPOSITION: Home with family support 01/06. Home healthcare services through [facility] including RN, PT, OT, home health aide. The patient's family obtained all equipment needed for home and will provide transport upon discharge. DISCHARGE MEDICATIONS: Please see discharge med rec. Recommend: 1. Neurontin 300 mg at bedtime x1 month and then stop. 2. Ultram 1-2 q.i.d. p.r.n. Ordered a lift chair. Feosol and vitamin C for 1 month and then stop. FOLLOWUP: Dr. Renato Stokes in [facility]. Dr. Briscoe as regularly scheduled. Enrique Sales MD/ bo JOB #: [id number] CC:
== END 2017-03-24 15:20 | disposition home health service (06) | DRG 560 ==
LOC: 6IRU 11:10
PROVIDERS: ADMIT Physical Medicine & Rehabilitation
PROC: F08Z2FZ Grooming/Personal Hygiene Treatment using Assistive, Adaptive, Supportive or Protective Equipment (ICD-10-PCS; principal; 2017-03-03)
PROC: F07Z9FZ Gait Training/Functional Ambulation Treatment using Assistive, Adaptive, Supportive or Protective Equipment (ICD-10-PCS; principal; 2017-03-03)
DX: Z47.89 Encounter for other orthopedic aftercare (principal); D62 Acute posthemorrhagic anemia; G62.9 Polyneuropathy, unspecified; G96.0 Cerebrospinal fluid leak; R26.89 Other abnormalities of gait and mobility; S14.109A Unspecified injury at unspecified level of cervical spinal cord, initial encounter; I25.10 Atherosclerotic heart disease of native coronary artery without angina pectoris; K59.00 Constipation, unspecified; G47.00 Insomnia, unspecified; E78.5 Hyperlipidemia, unspecified; I10 Essential (primary) hypertension; K21.9 Gastro-esophageal reflux disease without esophagitis; R41.0 Disorientation, unspecified; M62.81 Muscle weakness (generalized); N40.0 Benign prostatic hyperplasia without lower urinary tract symptoms; E55.9 Vitamin D deficiency, unspecified; D50.9 Iron deficiency anemia, unspecified; G89.18 Other acute postprocedural pain; M79.1 Myalgia; M10.9 Gout, unspecified; R60.0 Localized edema; R51 Headache; R03.1 Nonspecific low blood-pressure reading; R14.0 Abdominal distension (gaseous); W19.XXXA Unspecified fall, initial encounter; Z98.1 Arthrodesis status; Z96.643 Presence of artificial hip joint, bilateral; Z87.891 Personal history of nicotine dependence